=== PATIENT | female | born 1970 | race Caucasian/White ===

== ENCOUNTER 2016-08-13 18:47 | Observation (INO) | payer BC ==
[~2016-08-13] VITALS: Ht 162.6 cm; Wt 96.0 kg
[~2016-08-13 18:47] MED LIST: ADVIL200 MG PO; ANTIVERT25 MG PO; ANUSOL-HC21 GM PR; ASPIR-TRIN325 M1 PO; ATARAX,VISTARIL25 MG PO; CYANOCOBALAM1000 MCG PO; DIAZEPAM2 MG PO; DILAUDID2 MG PO; EPSOM SALT120 GM MC; ERGOCALCIF50000 UNIT PO; ESGIC 50-325-41 EACH PO; INDERAL LA60 MG PO; LOPRESSOR25 MG PO; MAXALT10 MG PO; NAPROSYN500 MG PO; NOHOMEMEDS; NORCO 7.5/321 TABLET PO; PERCOCET 5/31 TABLET PO; PRAVASTATIN SOD20 MG PO; PROTONIX IV40 MG IV; PROTONIX40 MG PO; TRANSDERM-SCO1 PATCH TD; VALIUM2 MG PO; VICODIN ES 7.51 EAC1 PO; VITAMIN D22000 UNIT PO; ZOFRAN ODT4 MG PO; ZOFRAN4 MG PO
[2016-08-13 20:44] LABS: HEMATOCRIT 42.8 % (36.0-46.0); MCH 29.5 PG (29.0-34.0); MCHC 32.9 G/DL (30.0-36.0); MCV 89.5 FL (83-99); MEAN PLAT.VOLUME 10.5 uM^3 (9.5-12.4); PLATELET COUNT 333 K/uL (156-360); RBC DIS.WIDTH-CV 12.1 % (11.8-14.6); RBC DIS.WIDTH-SD 39.2 % (39-53); RED BLOOD COUNT 4.78 M/uL (3.80-5.20); WHITE BLOOD COUNT 13.5 K/uL (4.1-10.2)
[2016-08-13 20:53] LABS: CHLORIDE 104 mEq/L (99-109); POTASSIUM 3.4 mEq/L (3.7-5.4); SODIUM 139 mEq/L (136-147)
[2016-08-13 20:54] LABS: GLUCOSE 100 mg/dL (70-99)
[2016-08-13 20:56] LABS: ANION GAP 9 MEQ/L (2-14)
[2016-08-13 20:58] LABS: GFR ESTIMATE (CALCULATED) > 59 mL/min/
[2016-08-13 20:59] LABS: UREA NITROGEN (BUN) 13 mg/dL (9-23)
[2016-08-13 21:01] LABS: TROP-I INTERPRETATION NEGATIVE; TROPONIN-I < 0.01 ng/mL (0.0-0.30)
[2016-08-13] MEDS ORDERED: OXYCODONE HCL5 MG PO (22:36)
[2016-08-13] MEDS ORDERED: ANTIVERT25 MG PO (22:37)
[2016-08-13] MEDS ORDERED: ONDANSETRON HCL4 MG PO (22:38)
[2016-08-13 22:47] LABS: TROP-I INTERPRETATION NEGATIVE; TROPONIN-I < 0.01 ng/mL (0.0-0.30)
[2016-08-14 01:08] VITALS: BP 130/77
[2016-08-14 03:14] LABS: TROP-I INTERPRETATION NEGATIVE; TROPONIN-I < 0.01 ng/mL (0.0-0.30)
[2016-08-14 04:00] VITALS: BP 123/74
[2016-08-14 09:22] VITALS: BP 125/79
[2016-08-14] MEDS ORDERED: ASPIR-LOW81 MG PO (10:47)
[2016-08-14 11:30] VITALS: BP 127/79
[2016-08-14 11:33] LABS: TROP-I INTERPRETATION NEGATIVE; TROPONIN-I < 0.01 ng/mL (0.0-0.30)
== END 2016-08-14 13:52 | disposition home or self-care (01) ==
LOC: EME 18:47 → 5WEST 23:59 → EDOF 23:59 → 5WEST 08-14 00:53
PROVIDERS: Emergency Medicine; Hospitalist
DX: G43.909 Migraine, unspecified, not intractable, without status migrainosus (principal); R07.9 Chest pain, unspecified; E87.6 Hypokalemia; E78.5 Hyperlipidemia, unspecified; H81.399 Other peripheral vertigo, unspecified ear; I10 Essential (primary) hypertension; K21.9 Gastro-esophageal reflux disease without esophagitis; L93.0 Discoid lupus erythematosus; M79.7 Fibromyalgia; R68.84 Jaw pain; Z79.82 Long term (current) use of aspirin; Z79.01 Long term (current) use of anticoagulants; Z88.0 Allergy status to penicillin; Z88.2 Allergy status to sulfonamides; Z88.5 Allergy status to narcotic agent; Z88.1 Allergy status to other antibiotic agents; Z91.09 Other allergy status, other than to drugs and biological substances
CPT/HCPCS: 70450; 71020; 80048; 84484; 85027; 93005; 99281; 99284; G0378; J1644; J2405